=== PATIENT | male | born 2000 | race Caucasian/White ===

== ENCOUNTER 2020-01-16 11:31 | Emergency (ER) | payer OTHER ==
[~2020-01-16] VITALS: Ht 188 cm; Wt 91.2 kg
[2020-01-16] MEDS ORDERED: IBUP1TAB7 PO (11:38)
--- NOTE | 2020-01-16 12:19 | REP ---
INDICATION: injury. COMPARISON: None. TECHNIQUE: Four views FINDINGS: Tibia and fibula show no fracture or focal bone lesion of the shafts. Proximal and distal articulations are grossly intact without fracture or avulsion. No disruption of the mortise joint. No narrowing of the medial or lateral joint compartments. No abnormal soft tissue calcification or foreign body. IMPRESSION: 1. Negative left tibia fibula series for fracture, focal bone lesion, foreign body or other acute finding. <Electronically signed by Silvino Way > 01/16/20 0071
[2020-01-16 13:29] VITALS: BP 108/76
== END 2020-01-16 13:30 | disposition home or self-care (01) ==
LOC: M ED 11:31
DX: S80.12XA Contusion of left lower leg, initial encounter (principal); W22.8XXA Striking against or struck by other objects, initial encounter; Y92.89 Other specified places as the place of occurrence of the external cause; F17.210 Nicotine dependence, cigarettes, uncomplicated